=== PATIENT | male | born 1985 | race Caucasian/White ===

== ENCOUNTER 2019-08-08 22:30 | Emergency (ER) | payer OTHER ==
[2019-08-08 22:40] VITALS: BP 127/87; PULSE 81; RESP 20; TEMP 97.9
== END 2019-08-08 23:07 | disposition left against medical advice (07) ==
LOC: EC 22:30
DX: R21 Rash and other nonspecific skin eruption (principal); M79.89 Other specified soft tissue disorders; Z53.21 Procedure and treatment not carried out due to patient leaving prior to being seen by health care provider
CPT/HCPCS: 99499

== ENCOUNTER 2020-03-15 07:33 | Emergency (ER) | payer OTHER ==
[2020-03-15] MEDS ORDERED: SODIUM CHLORIDE 0.9% 1,000 ML IV STA (07:50)
[2020-03-15] MEDS ORDERED: PANTOPRAZOLE 40 MG/10 ML VIAL IVP STA (07:50)
[2020-03-15] MEDS ORDERED: HYDROmorphone 1 MG/ML 1 ML SYRINGE IVP STA (07:51)
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
[2020-03-15 08:13] LABS: Basophils # (A) 0.2 k/uL (0-0.2); Basophils % (A) 2 %; Eosinophils # (A) 0.3 k/uL (0-0.7); Eosinophils % (A) 4 %; HCT 47.1 % (39.0-53.0); HGB 16.2 gm/dL (13.0-17.5); Lymphocytes % (A) 51 %; MCHC 34.3 g/dL (31.0-37.0); MCV 99.2 fL (80.0-100.0); Mean Platelet Volume 8.5; Monocytes # (A) 0.7 k/uL (0-1.0); Monocytes % (A) 7 %; Neutrophils # (A) 3.1 k/uL (1.3-7.7); Neutrophils % (A) 32 %; Platelet Count 224 k/uL (150-450); RBC 4.75 m/uL (4.30-5.90); RDW 13.1 % (11.5-15.5); WBC 9.7 k/uL (3.8-10.6)
[2020-03-15 08:17] LABS: ALT 170 U/L (4-49); AST 306 U/L (17-59); African American GFR (CKD) >90 (>60 ml/min/1.73 sqM); Albumin 3.9 g/dL (3.5-5.0); Alkaline Phosphatase 165 U/L (38-126); Amylase 42 U/L (30-110); Anion Gap 10 mmol/L; Blood Urea Nitrogen 16 mg/dL (9-20); Carbon Dioxide 20 mmol/L (22-30); Chloride 107 mmol/L (98-107); Glucose 95 mg/dL (74-99); Lipase 241 U/L (23-300); Non-African American GFR(CKD) >90 (>60 ml/min/1.73 sqM); Potassium 3.9 mmol/L (3.5-5.1); Sodium 137 mmol/L (137-145); Total Bilirubin 0.8 mg/dL (0.2-1.3); Total Protein 6.9 g/dL (6.3-8.2)
[2020-03-15 08:19] LABS: INR 0.9 (<1.2); Partial Thromboplastin Time 22.7 sec (22.0-30.0); Prothrombin Time 9.9 sec (9.0-12.0)
--- NOTE | 2020-03-15 08:57 | CT ---
EXAMINATION TYPE: CT abdomen pelvis w con DATE OF EXAM: 03/15/2020 COMPARISON: None HISTORY: Abd pain CT DLP: 728 mGycm Automated exposure control for dose reduction was used. TECHNIQUE: Helical acquisition of images from the lung bases through the pelvis have been completed. CONTRAST: Performed without Oral Contrast and with IV Contrast, patient injected with 100 mL of Isovue 300. FINDINGS: LUNG BASES: Irregular focus of soft tissue density is present along the right hemidiaphragm measuring 12 mm x 16 mm. AORTA: No significant abnormality is appreciated. LIVER/GB: Liver shows low attenuation likely due to hepatic steatosis, gallbladder is within normal l imits. The liver is enlarged. PANCREAS: No significant abnormality is seen. SPLEEN: No significant abnormality is seen. ADRENALS: No significant abnormality is seen. KIDNEYS: Cortical cyst associated with the right kidney midpole measures 2 cm, there is no hydronephr osis or renal calcification, no ureteral calcification REPRODUCTIVE ORGANS: No significant abnormality is seen BOWEL: Questionable wall thickening along the sigmoid colon and rectum. The appendix is normal FREE AIR: No Free Air visible. ASCITES: None visible. PELVIC ADENOPATHY: None visualized. RETROPERITONEAL ADENOPATHY: No Retroperitoneal Adenopathy visible. URINARY BLADDER: No significant abnormality is seen. OSSEOUS STRUCTURES: No significant abnormality is seen. IMPRESSION: INDETERMINATE SOFT TISSUE RIGHT LUNG BASE, FOLLOW-UP RECOMMENDED. CORRELATE TO EXCLUDE COLITIS. THERE IS HEPATIC STEATOSIS, HEPATOMEGALY.
[2020-03-15 09:58] VITALS: BP 127/94; PULSE 80; RESP 16; TEMP 97.2
[2020-03-15 10:06] LABS: Appearance,Urine Clear (Clear); Bilirubin,Urine Negative (Negative); Blood,Urine Negative (Negative); Color,Urine Light Yellow; Glucose,Urine (UA) Negative (Negative); Ketones,Urine Negative (Negative); Leukocyte Esterase,Urine Negative (Negative); Nitrite,Urine Negative (Negative); PH, Urine 6.5 (5.0-8.0); Protein,Urine Negative (Negative); Urobilinogen,Urine <2.0 mg/dL (<2.0)
[2020-03-15 10:07] LABS: Specific Gravity,Urine >1.050 (1.001-1.035)
== END 2020-03-15 10:48 | disposition home or self-care (01) ==
LOC: EC 07:33
DX: K52.9 Noninfective gastroenteritis and colitis, unspecified (principal); I25.2 Old myocardial infarction; F90.9 Attention-deficit hyperactivity disorder, unspecified type; F17.200 Nicotine dependence, unspecified, uncomplicated; Z79.899 Other long term (current) drug therapy
CPT/HCPCS: 36415; 80053; 82150; 83690; 85025; 85610; 85730; 81003; 74177; 99284; 96374; 96375; 96361 ×3; J1170; C9113; Q9967

== ENCOUNTER 2020-03-16 18:51 | Inpatient (IN) | payer OTHER ==
[2020-03-16] MEDS ORDERED: SODIUM CHLORIDE 0.9% 1,000 ML IV STA (19:15)
[2020-03-16] MEDS ORDERED: LORazepam 2 MG/ML INJ IV PRN (19:16)
[2020-03-16] MEDS ORDERED: THIAMINE 100 MG/ML 2 ML VIAL IM STA (19:16)
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
[2020-03-16] MEDS: LORazepam 2 MG/ML INJ IV PRN ×3 (19:25→23:31)
[2020-03-16 19:32] LABS: Basophils # (A) 0.2 k/uL (0-0.2); Basophils % (A) 2 %; Eosinophils # (A) 0.2 k/uL (0-0.7); Eosinophils % (A) 3 %; HCT 42.1 % (39.0-53.0); HGB 14.9 gm/dL (13.0-17.5); Lymphocytes # (A) 1.7 k/uL (1.0-4.8); Lymphocytes % (A) 20 %; MCH 34.4 pg (25.0-35.0); MCHC 35.3 g/dL (31.0-37.0); MCV 97.6 fL (80.0-100.0); Mean Platelet Volume 8.3; Monocytes # (A) 0.4 k/uL (0-1.0); Monocytes % (A) 4 %; Neutrophils % (A) 70 %; Platelet Count 187 k/uL (150-450); RBC 4.32 m/uL (4.30-5.90); RDW 12.3 % (11.5-15.5); WBC 8.6 k/uL (3.8-10.6)
[2020-03-16 19:43] LABS: ALT 151 U/L (4-49); AST 303 U/L (17-59); African American GFR (CKD) >90 (>60 ml/min/1.73 sqM); Albumin 3.9 g/dL (3.5-5.0); Alcohol 27 mg/dL; Alkaline Phosphatase 152 U/L (38-126); Anion Gap 9 mmol/L; Blood Urea Nitrogen 16 mg/dL (9-20); Calcium 9.2 mg/dL (8.4-10.2); Carbon Dioxide 20 mmol/L (22-30); Chloride 106 mmol/L (98-107); Glucose 122 mg/dL (74-99); Lipase 271 U/L (23-300); Magnesium 1.9 mg/dL (1.6-2.3); Non-African American GFR(CKD) >90 (>60 ml/min/1.73 sqM); Phosphorus 3.6 mg/dL (2.5-4.5); Potassium 3.8 mmol/L (3.5-5.1); Sodium 135 mmol/L (137-145); Total Bilirubin 0.7 mg/dL (0.2-1.3); Total Protein 6.8 g/dL (6.3-8.2)
[2020-03-16 19:50] LABS: Appearance,Urine Clear (Clear); Bilirubin,Urine Negative (Negative); Blood,Urine Negative (Negative); Color,Urine Yellow; Glucose,Urine (UA) Negative (Negative); Ketones,Urine Negative (Negative); Leukocyte Esterase,Urine Negative (Negative); Nitrite,Urine Negative (Negative); PH, Urine 5.5 (5.0-8.0); Protein,Urine 1+ (Negative); Specific Gravity,Urine 1.018 (1.001-1.035); Urobilinogen,Urine <2.0 mg/dL (<2.0); WBC,Urine 1 /hpf (0-5)
[2020-03-16] MEDS ORDERED: SODIUM CHLORIDE 0.9% 1,000 ML with MVI, ADULT NO.4 WITH VIT K 10 ML, THIAMINE 100 MG, F... IV ONE ×4 (20:00)
[2020-03-16] MEDS ORDERED: NALOXONE 0.4 MG/ML 1 ML VIAL IV PRN (20:22)
[2020-03-16] MEDS ORDERED: ACETAMINOPHEN TAB 325 MG TAB PO PRN (20:22)
[2020-03-17] MEDS: LORazepam 2 MG/ML INJ IV PRN ×4 (03:19→13:39)
[2020-03-17] MEDS: THIAMINE 100 MG TAB PO SCH ×3 (07:15→19:35)
[2020-03-17] MEDS: SODIUM CHLORIDE 0.9% 1,000 ML IV SCH ×2 (10:30→21:00)
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
[2020-03-18] MEDS: LORazepam 2 MG/ML INJ IV PRN (05:03)
[2020-03-18] MEDS: SODIUM CHLORIDE 0.9% 1,000 ML IV SCH (05:07)
[2020-03-18] MEDS: THIAMINE 100 MG TAB PO SCH (08:17)
[2020-03-18 08:44] VITALS: BP 137/87; PULSE 69; RESP 16; TEMP 98.4
[2020-03-18 11:06] LABS: Albumin 3.5 g/dL (3.80-4.90); Albumin/Globulin Ratio 1.84 (1.60-3.17); Anion Gap 5.8 mmol/L (4.00-12.00); BUN/Creat Ratio 11.25 Ratio (12.00-20.00); Calcium 8.7 mg/dL (8.7-10.3); Carbon Dioxide 25.2 mmol/L (21.6-31.8); Globulin 1.9 g/dL (1.6-3.3); Non-African American GFR(CKD) 117.4 (60.0-200.0); Potassium 3.8 mmol/L (3.5-5.5); Total Bilirubin 0.8 mg/dL (0.3-1.2); Total Protein 5.4 g/dL (6.2-8.2)
== END 2020-03-18 11:44 | disposition left against medical advice (07) | DRG 894 ==
LOC: EC 18:51 → 4SSUR 20:26
PROVIDERS: ADMIT Internal Medicine; ATTEND Internal Medicine
DX: F10.239 Alcohol dependence with withdrawal, unspecified (principal); E87.1 Hypo-osmolality and hyponatremia; K70.10 Alcoholic hepatitis without ascites; E86.1 Hypovolemia; Y90.1 Blood alcohol level of 20-39 mg/100 ml; I10 Essential (primary) hypertension; F90.9 Attention-deficit hyperactivity disorder, unspecified type; H53.9 Unspecified visual disturbance; I25.2 Old myocardial infarction; F17.210 Nicotine dependence, cigarettes, uncomplicated; Z71.6 Tobacco abuse counseling; Z79.82 Long term (current) use of aspirin; Z79.899 Other long term (current) drug therapy; Z87.438 Personal history of other diseases of male genital organs; Z98.890 Other specified postprocedural states; Z88.8 Allergy status to other drugs, medicaments and biological substances
CPT/HCPCS: 36415; 80053; 80320; 81001; 83690; 83735; 84100; 85025; 96361; 96372; 96374; 96375; 99285

== ENCOUNTER → 2020-04-11 | Outpatient (CLI) | payer OTHER ==
--- NOTE | 2020-04-11 10:20 | US ---
EXAMINATION TYPE: US abdomen complete DATE OF EXAM: 04/11/2020 COMPARISON: NONE CLINICAL HISTORY: R10.84 Generalized abdominal pain. Pain EXAM MEASUREMENTS: Liver Length: 14.4 cm Gallbladder Wall: .2 cm CBD: .4 cm Spleen: 11 cm Right Kidney: 10.6 x 4.5 x 4.6 cm Left Kidney: 9.6 x 5.1 x 4.4 cm Pancreas: Tail obscured by overlying bowel gas Liver: wnl Gallbladder: wnl Evidence for sonographic Lorenzo's sign: No CBD: wnl Spleen: wnl Right Kidney: Cystic area upper pole 1.3 x 1.6 x 1.4 cm. This appears simple Left Kidney: wnl Upper IVC: wnl Abd Aorta: wnl IMPRESSION: 1. Cyst upper pole right kidney.
== END | disposition home or self-care (01) ==
LOC: RADUSWWP 08:21
PROVIDERS: ATTEND Family Medicine
DX: N28.1 Cyst of kidney, acquired (principal)
CPT/HCPCS: 76700

== ENCOUNTER 2020-04-29 19:59 | Emergency (ER) | payer OTHER ==
[2020-04-29 20:12] VITALS: TEMP 98.3
[2020-04-29] MEDS ORDERED: ONDANSETRON 4 MG/2 ML VIAL IVP STA (20:50)
[2020-04-29] MEDS ORDERED: SODIUM CHLORIDE 0.9% 1,000 ML IV STA (20:50)
[2020-04-29] MEDS ORDERED: ASPIRIN 81 MG PO STA (20:50)
--- NOTE | 2020-04-29 21:09 | XR ---
EXAMINATION TYPE: XR chest 2V DATE OF EXAM: 04/29/2020 COMPARISON: NONE HISTORY: Chest pain. TECHNIQUE: Frontal and lateral views of the chest are obtained. FINDINGS: There is no focal air space opacity, pleural effusion, or pneumothorax seen. The cardiac silhouette size is within normal limits. The osseous structures are without acute abnormality. Kevin te posttraumatic changes of the right distal clavicle. IMPRESSION: No acute cardiopulmonary process.
[2020-04-29 21:37] LABS: Basophils # (A) 0.1 k/uL (0-0.2); Basophils % (A) 1 %; Eosinophils # (A) 0.2 k/uL (0-0.7); Eosinophils % (A) 2 %; HCT 42.2 % (39.0-53.0); HGB 14.4 gm/dL (13.0-17.5); Lymphocytes # (A) 1.8 k/uL (1.0-4.8); Lymphocytes % (A) 20 %; MCH 33.1 pg (25.0-35.0); MCHC 34.2 g/dL (31.0-37.0); MCV 96.6 fL (80.0-100.0); Mean Platelet Volume 9.2; Monocytes # (A) 0.4 k/uL (0-1.0); Monocytes % (A) 4 %; Neutrophils # (A) 6.6 k/uL (1.3-7.7); Neutrophils % (A) 71 %; Platelet Count 228 k/uL (150-450); RBC 4.36 m/uL (4.30-5.90); RDW 13.6 % (11.5-15.5); WBC 9.3 k/uL (3.8-10.6)
[2020-04-29 21:48] LABS: ALT 37 U/L (4-49); AST 73 U/L (17-59); African American GFR (CKD) >90 (>60 ml/min/1.73 sqM); Albumin 4.8 g/dL (3.5-5.0); Alkaline Phosphatase 109 U/L (38-126); Anion Gap 15 mmol/L; Blood Urea Nitrogen 12 mg/dL (9-20); Calcium 9.8 mg/dL (8.4-10.2); Carbon Dioxide 18 mmol/L (22-30); Chloride 103 mmol/L (98-107); Glucose 97 mg/dL (74-99); Lipase 159 U/L (23-300); Magnesium 1.8 mg/dL (1.6-2.3); Non-African American GFR(CKD) >90 (>60 ml/min/1.73 sqM); Potassium 3.9 mmol/L (3.5-5.1); Sodium 136 mmol/L (137-145); Total Bilirubin 0.8 mg/dL (0.2-1.3); Total Protein 7.8 g/dL (6.3-8.2)
[2020-04-29 22:00] LABS: INR 0.9 (<1.2); Partial Thromboplastin Time 23.4 sec (22.0-30.0); Prothrombin Time 10.1 sec (9.0-12.0)
[2020-04-29 22:05] VITALS: BP 136/84; PULSE 91; RESP 20
--- NOTE | 2020-04-29 22:19 | ED ---
General Adult HPI - General Chief complaint: Chest Pain Stated complaint: ABD. HEART BEAT Time Seen by Provider: 04/29/20 20:25 Source: patient Mode of arrival: ambulatory Limitations: no limitations - History of Present Illness Initial comments: 34-year-old male patient presents to the emergency department today for evaluation of chest pain, palpitations, shortness of breath. Patient states this started a couple of hours ago. Denies any cough or congestion. Denies any dizziness or weakness. Denies leg swelling or calf pain. States he has had a "mild heart attack" in the past. Denies any stent placement. Does admit to chronically drinking alcohol. Does admit to smoking cigarettes. States he takes metoprolol and a statin drug. Patient denies any recent rash, fever, chills, abdominal pain, nausea, vomiting, diarrhea, constipation, back pain, numbness, tingling, dizziness, weakness, hematuria, dysuria, urinary urgency, urinary frequency, headache, visual changes, or any other complaints. - Related Data Home Medications Medication Instructions Recorded Confirmed Aspirin EC [Ecotrin Low Dose] 81 mg PO DAILY 03/15/20 03/16/20 Flexeril (Unknown Strength) 1 tab PO DAILY PRN 03/15/20 03/16/20 Metoprolol Succinate [Toprol XL] 12.5 mg PO DAILY 03/15/20 03/16/20 Multivitamins, Thera [Multivitamin 1 tab PO DAILY 03/15/20 03/16/20 (formulary)] Ibuprofen [Motrin Ib] 400 mg PO ONCE PRN 03/16/20 03/16/20 L.acidoph,Paracasei, B.lactis 1 tab PO DAILY 03/16/20 03/16/20 [Probiotic] Saltstick (Unknown Strength) 1 dose PO DAILY 03/16/20 03/16/20 Allergies Allergy/AdvReac Type Severity Reaction Status Date / Time bupropion [From Wellbutrin] Allergy Hallucinati Verified 04/29/20 20:12 ons Review of Systems ROS Statement: Those systems with pertinent positive or pertinent negative responses have been documented in the HPI. ROS Other: All systems not noted in ROS Statement are negative. Past Medical History Past Medical History: Myocardial Infarction ([place]) Additional Past Medical History / Comment(s): SARATH Last Myocardial Infarction Date:: 2018 History of Any Multi-Drug Resistant Organisms: None Reported Additional Past Surgical History / Comment(s): Repair of undescended testicle Past Anesthesia/Blood Transfusion Reactions: No Reported Reaction Past Psychological History: ADD/ADHD Smoking Status: Current every day smoker Past Alcohol Use History: Abuse, Daily Past Drug Use History: Marijuana General Exam Limitations: no limitations General appearance: alert, in no apparent distress, other (This is a well- developed, well-nourished adult male patient in no acute distress. Vital signs upon presentation are temperature 98.3F, pulse 125, respirations 18, blood pressure 154/94, pulse ox 100% on room air.) Eye exam: Present: normal appearance, PERRL, EOMI. Absent: scleral icterus, conjunctival injection, periorbital swelling ENT exam: Present: normal exam, normal oropharynx, mucous membranes moist Respiratory exam: Present: normal lung sounds bilaterally. Absent: respiratory distress, wheezes, rales, rhonchi, stridor Cardiovascular Exam: Present: regular rate, normal rhythm, normal heart sounds. Absent: systolic murmur, diastolic murmur, rubs, gallop, clicks GI/Abdominal exam: Present: soft, normal bowel sounds. Absent: distended, tenderness, guarding, rebound, rigid Neurological exam: Present: alert, oriented X3, CN II-XII intact Psychiatric exam: Present: normal affect, normal mood Skin exam: Present: warm, dry, intact, normal color. Absent: rash Course Vital Signs 04/29/20 04/29/20 04/29/20 20:08 20:38 21:18 Temperature 98.3 F Pulse Rate 125 H 87 Respiratory 18 18 18 Rate Blood Pressure 154/94 150/100 O2 Sat by Pulse 100 100 Oximetry 04/29/20 22:04 Temperature Pulse Rate 91 Respiratory 20 Rate Blood Pressure 136/84 O2 Sat by Pulse 99 Oximetry EKG Findings - EKG Comments: EKG Findings:: EKG obtained at 2018 shows normal sinus rhythm with a sinus arrhythmia. Ventricular rate is 89, VA interval 116, QRS duration 86, QT 346, QTC 420. No evidence of ST elevation or depression. Medical Decision Making - Medical Decision Making 34-year-old male patient presented to the emergency department today for evaluation of chest pain and shortness of breath. Physical examination reveal clear equal lung sounds. Heart sounds are normal. Abdomen soft and nontender. Labs reviewed and revealed negative troponin. Other labs are unremarkable. Chest x-ray is negative. EKG showed sinus rhythm with a sinus arrhythmia. Patient will be discharged home to follow-up with his primary care physician and wrist hemmer for further evaluation as soon as possible. Return parameters were discussed in detail. He verbalizes understanding and agrees with this plan. Case discussed in detail with my attending Dr. Henry. - Lab Data Result diagrams: 04/29/20 21:11 04/29/20 21:11 Lab Results 04/29/20 04/29/20 04/29/20 Range/Units 21:11 21:11 21:11 WBC 9.3 (3.8-10.6) k/uL RBC 4.36 (4.30-5.90) m/uL Hgb 14.4 (13.0-17.5) gm/dL Hct 42.2 (39.0-53.0) % MCV 96.6 (80.0-100.0) fL MCH 33.1 (25.0-35.0) pg MCHC 34.2 (31.0-37.0) g/dL RDW 13.6 (11.5-15.5) % Plt Count 228 (150-450) k/uL MPV 9.2 Neutrophils % 71 % Lymphocytes % 20 % Monocytes % 4 % Eosinophils % 2 % Basophils % 1 % Neutrophils # 6.6 (1.3-7.7) k/uL Lymphocytes # 1.8 (1.0-4.8) k/uL Monocytes # 0.4 (0-1.0) k/uL Eosinophils # 0.2 (0-0.7) k/uL Basophils # 0.1 (0-0.2) k/uL PT 10.1 (9.0-12.0) sec INR 0.9 (<1.2) APTT 23.4 (22.0-30.0) sec Sodium 136 L (137-145) mmol/L Potassium 3.9 (3.5-5.1) mmol/L Chloride 103 (98-107) mmol/L Carbon Dioxide 18 L (22-30) mmol/L Anion Gap 15 mmol/L BUN 12 (9-20) mg/dL Creatinine 0.82 (0.66-1.25) mg/dL Est GFR (CKD-EPI)AfAm >90 (>60 ml/min/1.73 sqM) Est GFR (CKD-EPI)NonAf >90 (>60 ml/min/1.73 sqM) Glucose 97 (74-99) mg/dL Calcium 9.8 (8.4-10.2) mg/dL Magnesium 1.8 (1.6-2.3) mg/dL Total Bilirubin 0.8 (0.2-1.3) mg/dL AST 73 H (17-59) U/L ALT 37 (4-49) U/L Alkaline Phosphatase 109 (38-126) U/L Troponin I (0.000-0.034) ng/mL Total Protein 7.8 (6.3-8.2) g/dL Albumin 4.8 (3.5-5.0) g/dL Lipase 159 (23-300) U/L 04/29/20 Range/Units 21:11 WBC (3.8-10.6) k/uL RBC (4.30-5.90) m/uL Hgb (13.0-17.5) gm/dL Hct (39.0-53.0) % MCV (80.0-100.0) fL MCH (25.0-35.0) pg MCHC (31.0-37.0) g/dL RDW (11.5-15.5) % Plt Count (150-450) k/uL MPV Neutrophils % % Lymphocytes % % Monocytes % % Eosinophils % % Basophils % % Neutrophils # (1.3-7.7) k/uL Lymphocytes # (1.0-4.8) k/uL Monocytes # (0-1.0) k/uL Eosinophils # (0-0.7) k/uL Basophils # (0-0.2) k/uL PT (9.0-12.0) sec INR (<1.2) APTT (22.0-30.0) sec Sodium (137-145) mmol/L Potassium (3.5-5.1) mmol/L Chloride (98-107) mmol/L Carbon Dioxide (22-30) mmol/L Anion Gap mmol/L BUN (9-20) mg/dL Creatinine (0.66-1.25) mg/dL Est GFR (CKD-EPI)AfAm (>60 ml/min/1.73 sqM) Est GFR (CKD-EPI)NonAf (>60 ml/min/1.73 sqM) Glucose (74-99) mg/dL Calcium (8.4-10.2) mg/dL Magnesium (1.6-2.3) mg/dL Total Bilirubin (0.2-1.3) mg/dL AST (17-59) U/L ALT (4-49) U/L Alkaline Phosphatase (38-126) U/L Troponin I <0.012 (0.000-0.034) ng/mL Total Protein (6.3-8.2) g/dL Albumin (3.5-5.0) g/dL Lipase (23-300) U/L - Radiology Data Radiology results: report reviewed, image reviewed 2 view x-ray of the chest is obtained. Report was reviewed in its entirety. Impression by Dr. Browne shows no acute cardiopulmonary process. Disposition Clinical Impression: Palpitations, Chest pain Disposition: HOME SELF-CARE Condition: Good Instructions (If sedation given, give patient instructions): Chest Pain (ED), Heart Palpitations (ED) Additional Instructions: Follow-up with her primary care physician for recheck in 1-2 days. Follow up with cardiology as needed. Return to the emergency department for any new, wo rsening, or concerning symptoms. Is patient prescribed a controlled substance at d/c from ED?: No Referrals: [facility] [Primary Care Provider] - 1-2 days Time of Disposition: 22:26
== END 2020-04-29 22:30 | disposition home or self-care (01) ==
LOC: EC 19:59
DX: R07.9 Chest pain, unspecified (principal); R00.2 Palpitations; I49.8 Other specified cardiac arrhythmias; I25.2 Old myocardial infarction; F17.210 Nicotine dependence, cigarettes, uncomplicated; Z79.899 Other long term (current) drug therapy; Z79.82 Long term (current) use of aspirin
CPT/HCPCS: 36415; 93005; 80053; 83690; 83735; 84484; 85025; 85610; 85730; 71046; 99285; 96374; 96361; J2405

== ENCOUNTER 2020-10-01 23:48 | Observation (INO) | payer BC, OTHER ==
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
[2020-10-02 00:23] LABS: Basophils # (A) 0.1 k/uL (0-0.2); Basophils % (A) 1 %; Eosinophils # (A) 0.2 k/uL (0-0.7); Eosinophils % (A) 2 %; HCT 43.4 % (39.0-53.0); HGB 15.3 gm/dL (13.0-17.5); Lymphocytes # (A) 3.1 k/uL (1.0-4.8); Lymphocytes % (A) 38 %; MCH 34.8 pg (25.0-35.0); MCHC 35.2 g/dL (31.0-37.0); MCV 98.9 fL (80.0-100.0); Mean Platelet Volume 9.3; Monocytes # (A) 0.5 k/uL (0-1.0); Monocytes % (A) 6 %; Neutrophils # (A) 4.1 k/uL (1.3-7.7); Neutrophils % (A) 50 %; Platelet Count 207 k/uL (150-450); RBC 4.39 m/uL (4.30-5.90); RDW 12.2 % (11.5-15.5); WBC 8.1 k/uL (3.8-10.6)
--- NOTE | 2020-10-02 00:29 | XR ---
EXAMINATION TYPE: XR chest 2V DATE OF EXAM: 10/02/2020 COMPARISON: 04/29/2020 HISTORY: Chest pain TECHNIQUE: FINDINGS: Heart and mediastinum are normal. Lungs are clear. Diaphragm is normal. There is no pleural effusion or pneumothorax. There is old healed right clavicle fracture. IMPRESSION: No active cardiopulmonary disease. Normal heart. No change.
[2020-10-02 00:31] LABS: ALT 96 U/L (4-49); AST 172 U/L (17-59); African American GFR (CKD) >90 (>60 ml/min/1.73 sqM); Albumin 4.5 g/dL (3.5-5.0); Alkaline Phosphatase 125 U/L (38-126); Anion Gap 12 mmol/L; Blood Urea Nitrogen 10 mg/dL (9-20); Calcium 9.9 mg/dL (8.4-10.2); Carbon Dioxide 24 mmol/L (22-30); Chloride 105 mmol/L (98-107); Creatine Kinase 277 U/L (55-170); Glucose 100 mg/dL (74-99); Lipase 291 U/L (23-300); Magnesium 2.1 mg/dL (1.6-2.3); Non-African American GFR(CKD) >90 (>60 ml/min/1.73 sqM); Sodium 141 mmol/L (137-145); Total Bilirubin 0.4 mg/dL (0.2-1.3); Total Protein 6.8 g/dL (6.3-8.2)
[2020-10-02 00:38] LABS: INR 0.9 (<1.2); Partial Thromboplastin Time 22.6 sec (22.0-30.0); Prothrombin Time 9.6 sec (9.0-12.0)
[2020-10-02 00:41] VITALS: RESP 18
[2020-10-02 01:00] LABS: Creatine Kinase MB 1.2 ng/mL (0.0-2.4); Troponin I <0.012 ng/mL (0.000-0.034)
[2020-10-02] MEDS ORDERED: NITROGLYCERIN SL TABS 0.4 MG TAB SUBLINGUAL PRN (02:02)
[2020-10-02] MEDS ORDERED: LORazepam 2 MG/ML INJ IV PRN ×3 (02:04)
[2020-10-02] MEDS ORDERED: SODIUM CHLORIDE 0.9% 1,000 ML IV STA (02:06)
[2020-10-02] MEDS ORDERED: SODIUM CHLORIDE 0.9% 500 ML 500 ML IV STA (02:06)
[2020-10-02] MEDS ORDERED: THIAMINE 100 MG/ML 2 ML VIAL IM ONE (02:15)
[2020-10-02] MEDS: SODIUM CHLORIDE 0.9% 1,000 ML IV SCH ×2 (03:10→13:12)
--- NOTE | 2020-10-02 09:23 | CONS ---
CONSULTATION CHIEF COMPLAINT: Chest pain. HISTORY OF PRESENT ILLNESS: Anil is a 34-year-old gentleman with history of hypertension and alcohol abuse who presented to hospital with chest pain. His chest discomfort is sharp, precordial, mild intensity, unassociated with diaphoresis and unrelated to exertion. An EKG did not reveal acute ischemic changes. Three sets of cardiac enzymes have been negative. EKG showed sinus tachycardia with nonspecific ST-T wave changes. The patient underwent cardiac catheterization in 2019 in [place], [place] that showed mild nonobstructive coronary artery disease. At the time of my evaluation, he appears comfortable at rest and is free of symptoms. PAST MEDICAL HISTORY: Past medical history is significant for hypertension. MEDICATIONS: None. ALLERGIES: TO BUPROPION. FAMILY HISTORY: Negative for premature coronary artery disease. SOCIAL HISTORY: Significant for smoking, EtOH abuse. There is no history of drug abuse. REVIEW OF SYSTEMS: HEENT is unremarkable. CARDIAC as described above. RESPIRATORY negative. GI negative. GENITOURINARY: Negative. SKIN: Negative. MUSCULOSKELETAL: Significant for arthritis. PSYCHOSOCIAL negative. ENDOCRINE negative. DERM negative. CONSTITUTIONAL negative. ONCOLOGICAL negative. CABINET WORKER negative. Rest of the system review is not relevant. EXAM: Comfortable at rest. Vital signs are stable. There is no jugular venous distention. Carotid upstroke is normal. There is no bruit. CHEST exam reveals good air entry bilaterally. HEART exam reveals first and second heart sounds. No gallop. No murmur. ABDOMEN is soft, nontender. Examination of EXTREMITIES did not reveal any edema. Peripheral pulses are felt. ASSESSMENT: 1. Precordial chest pain. 2. History of hypertension. 3. ETOH abuse. PLAN: I will obtain a 2D echo and a stress test for further evaluation of his symptoms. MMODL / IJN: [id number] /
[2020-10-02] MEDS ORDERED: NICOTINE 21MG/24HR PATCH TRANSDERM SCH (11:00)
--- NOTE | 2020-10-02 11:20 | ECHOF ---
Referral Reason:cp MEASUREMENTS -------- HEIGHT: 175.3 cm WEIGHT: 530.7 kg BP: 142/98 RVIDd: 3.4 cm (< 3.3) IVSd: 1.2 cm (0.6 - 1.1) LVIDd: 4.5 cm (3.9 - 5.3) LVPWd: 0.9 cm (0.6 - 1.1) IVSs: 1.7 cm LVIDs: 2.5 cm LVPWs: 2.0 cm LAESV Index (A-L): 11.94 ml/m Ao Diam: 3.6 cm (2.0 - 3.7) AV Cusp: 2.3 cm (1.5 - 2.6) MV EXCURSION: 12.559 mm (> 18.000) MV EF SLOPE: 111 mm/s (70 - 150) EPSS: 1.6 cm MV E Logan: 0.83 m/s MV DecT: 176 ms MV A Logan: 0.35 m/s MV E/A Ratio: 2.35 RAP: 5.00 mmHg RVSP: 31.71 mmHg FINDINGS -------- Sinus rhythm. This was a technically good study. The left ventricular size is normal. There is borderline concentric left ventricular hypertrophy. Overall left ventricular systolic function is normal with, an EF between 55 - 60 %. The diastolic filling pattern is normal for the age of the patient 6.43. The right ventricle is mildly enlarged. Normal LA size by volume 22+/-6 ml/m2. The right atrial size is normal. Interatrial and interventricular septum intact. The aortic valve is trileaflet and appears structurally normal. There is no evidence of aortic regu rgitation. There is no evidence of aortic stenosis. There is trace to mild mitral regurgitation. Mild tricuspid regurgitation present. There is no evidence of pulmonary hypertension. The right v entricular systolic pressure, as measured by Doppler, is 31.71mmHg. There is no pulmonic regurgitation present. The aortic root size is normal. Normal inferior vena cava with normal inspiratory collapse consistent with estimated right atrial pre ssure of 5 mmHg. There is no pericardial effusion. CONCLUSIONS -------- 1. The left ventricular size is normal. 2. There is borderline concentric left ventricular hypertrophy. 3. Overall left ventricular systolic function is normal with, an EF between 55 - 60 %. 4. The diastolic filling pattern is normal for the age of the patient 6.43 5. The right ventricle is mildly enlarged. 6. There is trace to mild mitral regurgitation. 7. Mild tricuspid regurgitation present. BOAT DISPATCHER: Lianna Sarabia RDCS
[2020-10-02] MEDS ORDERED: THIAMINE 100 MG TAB PO SCH (17:30)
[2020-10-02 19:40] VITALS: BP 135/96; PULSE 78; TEMP 98.5
[2020-10-03] MEDS ORDERED: ASPIRIN 325 MG TAB PO SCH (09:00)
== END 2020-10-02 19:47 | disposition home or self-care (01) ==
LOC: EC 23:48 → 1SOBS 10-02 02:02 → 6NMEDSUR 10-02 11:43
PROVIDERS: ADMIT Family Medicine; ATTEND Family Medicine
DX: R07.2 Precordial pain (principal); I08.1 Rheumatic disorders of both mitral and tricuspid valves; I25.10 Atherosclerotic heart disease of native coronary artery without angina pectoris; I10 Essential (primary) hypertension; R00.0 Tachycardia, unspecified; F10.10 Alcohol abuse, uncomplicated; I25.2 Old myocardial infarction; F17.200 Nicotine dependence, unspecified, uncomplicated; M19.90 Unspecified osteoarthritis, unspecified site; F31.9 Bipolar disorder, unspecified; F43.10 Post-traumatic stress disorder, unspecified; F90.9 Attention-deficit hyperactivity disorder, unspecified type; Z79.82 Long term (current) use of aspirin; Z79.899 Other long term (current) drug therapy; Z88.8 Allergy status to other drugs, medicaments and biological substances; Z87.828 Personal history of other (healed) physical injury and trauma; Z98.890 Other specified postprocedural states
CPT/HCPCS: 96360; 96361; 96372; 99285 ×2; 36415; 93005 ×2; 93306; 83880; 80053; 82550; 82553; 83690; 83735; 84484; 85025; 85610; 85730; 71046; G0378 ×2; S4990; J3411

== ENCOUNTER → 2020-11-22 | Outpatient (CLI) | payer BC ==
--- NOTE | 2020-11-22 12:32 | EST ---
EXERCISE STRESS AGE: 35 SEX: M HT: 5'10" WT: 167 lbs PROTOCOL: Marcellus STAGE: 4 DURATION OF EXERCISE: 10:00 HEART RATE REST: 75 BLOOD PRESSURE REST: 121/92 MAXIMUM HEART RATE ACHIEVED: 192 MAXIMUM BLOOD PRESSURE: 179/77 85% MPHR: 158 100% MPHR: 186 METS: 11.5 INDICATIONS: Chest pain. CLINICAL INFORMATION: Baseline EKG shows sinus rhythm, normal axis, normal intervals with poor R-wave progression. Patient exercised on Marcellus protocol for a total of 10 minutes, achieving 11 METS, 100% of predicted maximal heart rate, without chest pain or diagnostic ST- segment depression. CONCLUSIONS: 1. Excellent exercise tolerance. 2. Negative stress test by EKG criteria. MMODL / IJN: [id number] /
== END | disposition home or self-care (01) ==
LOC: RADNMMAIN 08:13
PROVIDERS: ATTEND Family Medicine
DX: R07.9 Chest pain, unspecified (principal)
CPT/HCPCS: 93017